=== PATIENT | male | born 1945 ===

== ENCOUNTER 2018-12-20 06:42 | Day surgery (SDC) | payer BC ==
[2018-12-19 11:05] VITALS: BMI 31.3
[2018-12-20 08:08] LABS: BASO % 0.3 % (0.0-2.0); EOS # 0.2 K/uL (0.0-0.7); HEMOGLOBIN 15.2 g/dL (12.0-18.0); LYMPH # 2.2 K/uL (1.0-4.3); LYMPH % 25.4 % (20.0-40.0); MEAN CELL VOLUME 90.9 fL (80.0-94.0); MEAN CORPUSCULAR HGB CONC 34.1 g/dL (33.0-37.0); MEAN PLATELET VOLUME 6.8 fL (7.2-11.7); MONO # 0.8 K/uL (0.0-0.8); MONO % 8.9 % (0.0-10.0); NEUT # 5.5 K/uL (1.8-7.0); NEUT % 63.4 % (50.0-75.0); NRBC % 0.1 % (0.0-2.0); RBC 4.9 Mil/uL (4.40-5.90); RED CELL DISTRIBUTION WIDTH 14.3 % (11.5-14.5); WHITE BLOOD COUNT 8.7 K/uL (4.8-10.8)
[2018-12-20 08:16] LABS: ALB/GLOB RATIO 1.2 (1.0-2.1); ALBUMIN 4.3 g/dL (3.5-5.0); ALT/SGPT 26 U/L (21-72); AST/SGOT 36 U/L (17-59); BLOOD UREA NITROGEN 17 mg/dL (9-20); CALCIUM 8.6 mg/dl (8.6-10.4); GFR NON-AFRICAN AMERICAN > 60; HDL CHOLESTEROL 56 mg/dL (30-70)
[2018-12-20 08:17] LABS: PROTHROMBIN TIME 11.4 SECONDS (9.7-12.2)
[2018-12-20 08:27] LABS: LDL CHOLESTEROL 92 mg/dL (0-129)
[2018-12-20 08:57] LABS: T3 1.99 nmol/L (1.49-2.60)
--- NOTE | 2018-12-20 09:36 | CP.SDSHP ---
Same Day Surgery H & P - History Proposed Procedure: colonscopy Pre-Op Diagnosis: SEE NOTES - Previous Medical/Surgical History Cardiac: Hypertension Misc: Other Pain: 2.Mild Pain Previous Surgical History: COLONSCOPY/POLYPECTOMY - Allergies Allergies: Allergies Penicillins Allergy (Verified 12/19/18 11:04) SHORTNESS OF BREATH - Physical Exam General Appearance: N Vital Signs: Vital Signs 12/20/18 07:47 Temperature 98.6 F Pulse Rate 47 L Respiratory 18 Rate Blood Pressure 157/74 H O2 Sat by Pulse 97 Oximetry Mental Status: Alert & Oriented x3 Neuro: WNL Heart: Other Lungs: WNL GI: Other - {Optional Preform as Required} Breast: WNL Abdomen: Other Rectal: Other Integument: WNL : WNL Ortho: WNL ENT: WNL - Impression Pt. Evaluated Today:Candidate for Anesthesia & Procedure: Yes - Date & Time Time: 09:36 Short Stay Discharge - Short Stay Discharge Admitting Diagnosis/Reason for Visit: COLON POLYPS/ BODY WEIGHT (LABS) Disposition: HOME/ ROUTINE
[2018-12-20] MEDS ORDERED: Propofol 10 mg/ml Inj (20 ML) ONE (09:37)
[2018-12-20 10:08] VITALS: TEMP 97.7
[2018-12-20] MEDS ORDERED: Belladonna-Phenobarbital PO ONE (10:40)
[2018-12-20 10:46] VITALS: BP 167/78; PULSE 45; RESP 18; O2SAT 98
== END 2018-12-20 11:04 | disposition home or self-care (01) ==
LOC: C.ENDO 06:42 → EDBD 06:42 → C.ENDO 11:04
PROVIDERS: ATTEND Specialist
DX: K57.90 Diverticulosis of intestine, part unspecified, without perforation or abscess without bleeding (principal); Z86.010 Personal history of colon polyps; K64.8 Other hemorrhoids; I10 Essential (primary) hypertension
CPT/HCPCS: 36415; 45378; 80053; 80061; 82378; 84153; 84436; 84443; 84480; 85025; 85610; 85730; 88305; J2704